=== PATIENT | male | born 1950 | race American Indian/Alaskan Native ===

== ENCOUNTER 2021-03-18 16:18 | Emergency (ER) | payer MEDICARE ==
--- NOTE | 2021-03-18 16:28 | Emergency Department Report ---
ED General Adult HPI - General Chief complaint: Cardiac Arrest/CPR Stated complaint: CARDIAC ARREST PUI?: No Time Seen by Provider: 03/18/21 16:24 Source: family, EMS (Verbal report received from emergency medical services. EMS documentation not available at time of chart dictation ), RN notes reviewed, old records reviewed Mode of arrival: Stretcher Limitations: Altered Mental Status, Physical Limitation - History of Present Illness Initial comments: The patient was evaluated in the emergency department for symptoms described in the history of present illness. He/she was evaluated in the context of the global COVID-19 pandemic, which necessitated consideration that the patient might be at risk for infection with the virus that causes COVID-19. Institutional protocols and algorithms that pertain to the evaluation of patients at risk for COVID-19 are in a state of rapid change based on information released by regulatory bodies including the CDC and federal and state organizations. These policies and algorithms were followed during the patient's care in the emergency department. Please note that these policies, procedures and recommendations changed on a rapid basis. Primary CARE doctor: Dr. Hiram Chaparro This is a 70-year-old gentleman. He is not known to myself previously. His past medical history includes spinal stenosis, gout, Parkinson's, type 2 diabetes, renal insufficiency, anemia, hypertension, and epilepsy. He is brought to the hospital by emergency services as an out of hospital cardiac arrest. History obtained from EMS, as the patient arrives intubated, with a GCS of 3T, on a backboard. EMS reports that they received a 911 call from patient's skilled nursing, with the patient was found to be unresponsive in bed, and pulseless, for approximately 10 to 15 minutes. EMS responded, intubated the patient, and perform standard ACLS interventions. As per EMS report, patient has lost pulses at least twice in the field, and estimates total time of pulselessness is 15 to 25 minutes. In the emergency room, patient is receiving CPR, [id number] ventilation, and standard ACLS interventions. We are able to reobtain pulses, and an initial twelve-lead EKG is obtained, with suspicious ST depression morphology, although not consistent with ST elevation myocardial infarction. The EKG is transmitted to our windows server support technician, Dr. Julio, along with prior EKG available for comparison, and he recommends that activation of the cardiac catheterization lab not necessary at this time which I agree with, he did recommend medical management, further diagnostic work-up, and we agreed on serial EKGs. Shortly thereafter, patient lost pulses again, please see code sheet, and we are able to reobtain pulses. At that point in time, the patient's and son presented, and I had extensive discussion with them regarding patient's poor neurologic prognosis, multiple cardiac arrests, and probable irreversible anoxic brain injury I then discussed advanced directives with patient's and son, as well as goals of care the patient may have communicated to his family, and both of his family members indicated that the patient himself would not want mechanical ventilation, or life support. Therefore, patient's signed a DO NOT RESUSCITATE form. She was amenable to diagnostic work-up, including laboratory studies, x-ray, noncontrast CT scan of the brain. Also amenable to IV fluids and pain medication, and antibiotics if necessary. Unfortunately, pulses were lost again, and bedside ultrasound showed no coordinated cardiac activity, and the patient was thus pronounced . Family at the bedside, and aware. -: Sudden, minutes(s) - Related Data Home Medications Medication Instructions Recorded Confirmed Last Taken atenoloL [Tenormin] 50 mg PO DAILY 08/16/13 03/02/14 08/16/13 hydrALAZINE [Apresoline] 100 mg PO Q12H 08/16/13 03/02/14 03/02/14 07:30 Colcrys 0.6 mg PO BID 03/02/14 03/02/14 Unknown Ibuprofen [Motrin 600 MG tab] 600 mg PO TID 03/02/14 03/02/14 Unknown levETIRAcetam [Keppra] 750 mg PO BID 03/02/14 03/02/14 03/02/14 07:30 Previous Rx's Medication Instructions Recorded Last Taken Type predniSONE [Deltasone] 20 mg PO TID #12 tab 03/02/14 Unknown Rx Allergies Allergy/AdvReac Type Severity Reaction Status Date / Time amlodipine besylate Allergy Angioedema Verified 08/16/13 13:16 [From Lotrel] benazepril HCl [From Lotrel] Allergy Angioedema Verified 08/16/13 13:16 ED Review of Systems ROS: Stated complaint: CARDIAC ARREST Other details as noted in HPI Comment: Unobtainable due to pts medical conditions ED Past Medical Hx - Past Medical History Hx Hypertension: Yes Hx Seizures: Yes Additional medical history: Gout - Surgical History Additional Surgical History: left knee surgery. heart cath - Social History Smoking Status: Former Smoker (none 30 years) Substance Use Type: None - Medications Home Medications: Home Medications Medication Instructions Recorded Confirmed Last Taken Type atenoloL [Tenormin] 50 mg PO DAILY 08/16/13 03/02/14 08/16/13 History hydrALAZINE [Apresoline] 100 mg PO Q12H 08/16/13 03/02/14 03/02/14 07:30 History Colcrys 0.6 mg PO BID 03/02/14 03/02/14 Unknown History Ibuprofen [Motrin 600 MG tab] 600 mg PO TID 03/02/14 03/02/14 Unknown History levETIRAcetam [Keppra] 750 mg PO BID 03/02/14 03/02/14 03/02/14 07:30 History predniSONE [Deltasone] 20 mg PO TID #12 tab 03/02/14 Unknown Rx ED Physical Exam - General Limitations: Altered Mental Status, Physical Limitation General appearance: obtunded - Head Head exam: Present: atraumatic, normocephalic - Eye Eye exam: Present: other (Pupils dilated and do not react to light) - ENT ENT exam: Present: mucous membranes moist, normal external ear exam, other (Endotracheal tube noted in the oropharynx) - Neck Neck exam: Present: normal inspection. Absent: tenderness, meningismus - Respiratory Respiratory exam: Present: rhonchi, other (No breath sounds without mechanical ventilation) - Cardiovascular Cardiovascular Exam: Present: tachycardia (Initially pulseless, then tachycardic when pulses are obtained.) - GI/Abdominal GI/Abdominal exam: Present: soft. Absent: distended, tenderness, guarding, rebound, rigid, pulsatile mass - Rectal Rectal exam: Present: normal inspection - exam: Present: normal inspection, other (West catheter in place draining cloudy yellow urine) External exam: Present: normal external exam - Extremities Exam Extremities exam: Present: normal inspection - Back Exam Back exam: Present: normal inspection. Absent: tenderness, paraspinal tenderness - Neurological Exam Neurological exam: Present: altered, other (GCS of 3T) - Psychiatric Psychiatric exam: Present: other (Nonverbal) - Skin Skin exam: Present: warm, dry, intact, normal color. Absent: rash ED Course Vital Signs 03/18/21 16:24 Pulse Rate 65 O2 Sat by Pulse 98 Oximetry ED Medical Decision Making - Lab Data Vital Signs 03/18/21 16:24 Pulse Rate 65 O2 Sat by Pulse 98 Oximetry - EKG Data -: EKG Interpreted by Id - EKG Data 03/18/21 17:08 EKG interpreted at 16: 20 Ectopic versus sinus rhythm, with a left axis deviation and a left anterior fascicular block, first-degree AV block, QTC prolonged, 570 ms, right bundle branch block, ST depression V3, V4, V5, ST elevation in aVR. This is an abnormal EKG. This is not a STEMI. This is transmitted to our windows server support technician, Dr. Julio, who agreed that this EKG does not meet activation criteria for the cardiac catheterization lab. - Radiology Data Radiology results: report reviewed, image reviewed [facility] [address] [place] [address] XRay Report Signed Patient: DIO WOLFE MR# : [id number] : 1950 Acct:[id number] Age/Sex: 70 / M ADM Date: 03/18/21 Loc: ED Attending Dr: Ordering Physician: MATEO BLANCHARD MD Date of Service: 03/18/21 Procedure(s): XR chest 1V ap Accession Number(s): [id number] cc: MATEO BLANCHARD MD Fluoro Time In Minutes: CHEST 1 VIEW 03/18/2021 4:29 PM INDICATION / CLINICAL INFORMATION: post cardiac arrest. COMPARISON: None available. FINDINGS: SUPPORT DEVICES: Interval placement of ET tube with its tip approximately 3.1 cm above the level the meet. HEART / MEDIASTINUM: Stable. LUNGS / PLEURA: Mild hazy right perihilar pulmonary opacity. No confluent infiltrates or pleural effusion. No pneumothorax. ADDITIONAL FINDINGS: No significant additional findings. IMPRESSION: 1. Interval placement of ET tube with its tip approximately 3.1 cm above the level the meet. 2. Mild hazy right perihilar pulmonary opacity may represent atelectasis versus asymmetric interstitial edema. Signer Name: Peter Kruger MD Signed: 03/18/2021 4:56 PM Workstation Name: [id number] Transcribed By: Dictated By: PETER KRUGER Electronically Authenticated By: PETER KRUGER Signed Date/Time: 03/18/211655 DD/ 52 - Medical Decision Making Differential diagnosis, including but not limited to: Hyperkalemia, bacteremia, viremia, acute coronary syndrome Critical Care Time: Yes Critical care time in (mins) excluding proc time.: 60 Critical care attestation.: If time is entered above; I have spent that time in minutes in the direct care of this critically ill patient, excluding procedure time. ED Disposition Clinical Impression: Cardiac arrest Disposition: DC-20 Is pt being admited?: No Does the pt Need Aspirin: No Condition: Undetermined
[2021-03-18] MEDS ORDERED: LIP THERAPY VASELINE TP PRN (16:43)
[2021-03-18] MEDS ORDERED: fentaNYL 100 MCG/2 ML INJ IV PRN (16:43)
[2021-03-18] MEDS ORDERED: MINERAL OIL/PETROLATUM, WHITE OPHTH OINT 3.5 GM OU PRN (16:43)
[2021-03-18] MEDS ORDERED: LACTATED RINGERS 1,000 ML IV ONE (16:44)
[2021-03-18] MEDS ORDERED: fentaNYL DRIP Premix 2,000 MCG/100 ML BAG IV SCH (17:00)
--- NOTE | 2021-03-18 17:00 | XRay Report ---
CHEST 1 VIEW 03/18/2021 4:29 PM INDICATION / CLINICAL INFORMATION: post cardiac arrest. COMPARISON: None available. FINDINGS: SUPPORT DEVICES: Interval placement of ET tube with its tip approximately 3.1 cm above the level the meet. HEART / MEDIASTINUM: Stable. LUNGS / PLEURA: Mild hazy right perihilar pulmonary opacity. No confluent infiltrates or pleural effu neida. No pneumothorax. ADDITIONAL FINDINGS: No significant additional findings. IMPRESSION: 1. Interval placement of ET tube with its tip approximately 3.1 cm above the level the meet. 2. Mild hazy right perihilar pulmonary opacity may represent atelectasis versus asymmetric interstiti al edema. Signer Name: Peter Ashton MD Signed: 03/18/2021 4:56 PM Workstation Name: [id number]
[2021-03-18] MEDS ORDERED: FAMOTIDINE 20 MG/2 ML INJ IV SCH ×3 (22:00)
[2021-03-18] MEDS ORDERED: SENNOSIDES/DOCUSATE SODIUM 8.6/50 MG TAB FEEDTUBE SCH (22:00)
--- NOTE | 2021-03-20 10:37 | Electrocardiograph Report ---
[facility] Test Date: 2021-03-18 Test Time: 16:20:52 Pat Name: DIO WOLFE Department: Room: Gender: M Nuclear Medicine Technician: ANIKA : 1950 Requested By: MATEO BLANCHARD Order Number: [id number] Reading MD: Antolin Mendez Measurements Intervals Mcgrath Rate: 112 P: 250 OK: 227 QRS: -82 QRSD: 121 T: 73 QT: 417 QTc: 570 Interpretive Statements Sinus or ectopic atrial tachycardia Prolonged OK interval RBBB and LAFB Abnrm T, probable ischemia, anterolateral lds No previous ECG available for comparison Electronically Signed On 03-20-2021 10:37:28 EDT by Antolin Mendez
== END 2021-03-18 19:45 ==
LOC: ED 16:18
DX: I46.9 Cardiac arrest, cause unspecified (principal); I10 Essential (primary) hypertension; Z86.69 Personal history of other diseases of the nervous system and sense organs; Z87.891 Personal history of nicotine dependence; Z88.8 Allergy status to other drugs, medicaments and biological substances; Z79.899 Other long term (current) drug therapy
CPT/HCPCS: 71045; 92950; 93005; 99291; J7120; 94002; 96360